=== PATIENT | female | born 1945 | race Caucasian/White ===

== ENCOUNTER 2019-08-07 21:56 | Emergency (ER) | payer MEDICARE, OTHER, SELFPAY ==
[2019-08-07 22:01] VITALS: BP 170/81; PULSE 76; RESP 16; TEMP 36.3; O2SAT 96
--- NOTE | 2019-08-07 22:04 | W.ED.GENAD ---
Discharge Plan Disposition Patient Disposition: HOME Condition: Stable Discharge Details Chief Complaint: EarProblem Clinical Impression: Ear foreign body Primary Care Provider: No,Local ED Provider: Scooby Zamora Home Meds and New Rx's Prescriptions: Continued simvastatin 5 MG tablet PO DAILY RF: 0 losartan 25 mg Tablet RF: 0 Discharge Instructions Instructions: Ear Foreign Body (ED) Additional Instructions: Foreign body removed without difficulty. Please watch for new or worsening symptoms and return to the ER for any concerns Medical Decision Making Presents with left ear canal foreign body. No additional questions or concerns. Able to remove foreign body with alligator forceps without difficulty. Patient tolerated well. Upon reevaluation canal is unremarkable. TM is normal. Medical Records Medical records reviewed: Yes I reviewed the patient's medical records. HPI General Mode of arrival: ambulatory. Date/Time Provider Initiated Documentation: 08/07/19 21:57. Limitations to Documentation: no limitations. Information obtained by: patient. HPI Narrative: Patient reports that approximately 1 hour ago she was removing her hearing aid from her left ear and realized that the plastic a dome piece is now off of her hearing aid and in her ear canal. Denies pain or any other symptoms. Related Data Home Medications Medication Instructions Recorded Confirmed simvastatin mg PO DAILY 12/08/16 losartan 08/07/19 Allergies Allergy/AdvReac Type Severity Reaction Status Date / Time ragweed pollen AdvReac Unverified 12/08/16 18:27 General Stated Complaint: EarProblem ASHLY: 4 Review of Systems Constitutional Constitutional: Denies headache(s) ENT Ears, Nose, Mouth, and Throat: Denies headache(s), Reports hearing loss (At baseline) and Denies sore throat Neurologic Neurologic: Denies headache(s) [facility] Social History Smoking/Tobacco Use Status: Never Drug use: Never Substance use type: does not use Do you feel safe at home: Yes Do you feel safe in your relationship?: Yes Exam Const General: cooperative, healthy appearing, comfortable and no acute distress Orientation: alert and awake [facility] Head: normal to inspection, normocephalic and atraumatic Ears: TM normal on the right and EAC abnormal foreign body on the left (Clear plastic hearing aid piece) Mouth: moist mucous membranes Eyes Conjunctivae: conjunctivae normal Neck Neck: normal visual inspection, trachea midline and supple Resp Effort & Inspection: normal respiratory effort and able to speak in complete sentences Skin General skin exam: no rashes or lesions noted Neuro General: patient alert, patient awake, moves all extremities and no focal motor deficits Sensory Exam: no sensory deficits noted Psych Appearance: grossly normal Mental Status: mental status grossly normal Course Vital Signs Vital signs: Vital Signs Temperature 36.3 C L 08/07/19 22:01 Pulse 76 08/07/19 22:01 Respiratory Rate 16 08/07/19 22:01 Blood Pressure 170/81 H 08/07/19 22:01 Pulse Oximetry 96 08/07/19 22:01 Temperature 36.3 C L 08/07/19 22:01 Temperature Source Skin 08/07/19 22:01 Pulse 76 08/07/19 22:01 Respiratory Rate 16 08/07/19 22:01 Blood Pressure 170/81 H 08/07/19 22:01 Blood Pressure Position Sitting 08/07/19 22:01 Pulse Oximetry 96 08/07/19 22:01 Oxygen Delivery Method Room Air 08/07/19 22:01 Oxygen Flow Rate 0 08/07/19 22:01
== END 2019-08-07 22:38 | disposition home or self-care (01) ==
LOC: ER 22:41
PROVIDERS: Emergency Provider Physician Assistant
DX: T16.2XXA Foreign body in left ear, initial encounter (principal)
CPT/HCPCS: 69200

== ENCOUNTER 2019-12-28 08:12 | Emergency (ER) | payer MEDICARE, OTHER, SELFPAY ==
[2019-12-28 08:15] VITALS: BP 148/78; PULSE 70; RESP 16; TEMP 36.3; O2SAT 100
--- NOTE | 2019-12-28 08:34 | W.ED.GENAD ---
Discharge Plan Disposition Patient Disposition: HOME Condition: Good Discharge Details Clinical Impression: Acute foreign body of left ear Primary Care Provider: Kenzie,Local ED Provider: Joaquin Catherine Home Meds and New Rx's Prescriptions: Continued simvastatin 5 MG tablet PO DAILY RF: 0 losartan 25 mg Tablet RF: 0 Discharge Instructions Additional Instructions: Please take Tylenol and Motrin as needed for any pain in your left ear. Please follow-up with your doctor to get a new attachment for your hearing aid. If you notice any worsening of your symptoms, or any new symptoms such as vomiting, diarrhea, fever, chills, shortness of breath, chest pain, numbness, weakness, or fainting , please return immediately to the emergency department for reevaluation. Please follow up with your primary care provider as soon as possible for reassessment and reevaluation. As always, it was a pleasure participating in your medical care today. Medical Decision Making 74-year-old female who wears hearing aids presents for foreign body in left ear. The rubber attachment from the hearing aid got stuck in her ear last night. She was unable to remove it. Aside from mild irritation she has no other complaints. No pertinent family surgical or other medical past history. Foreign body removed without complication or difficulty. Patient tolerated procedure well. Suture hemostats infection device were utilized for this. Patient will follow up with ear doctor. I have extensively reviewed the treatment plan and discharge instructions with the patient. I have addressed all patient concerns at this time. The patient was made aware of what symptoms to monitor for that would warrant a return to the emergency department. Discussed the plan with the patient, they demonstrate verbal understanding and agreement with our assessment and plan at this time. HPI General Date/Time Provider Initiated Documentation: 12/28/19 08:34. HPI Narrative: 74-year-old female who wears hearing aids presents for foreign body in left ear. The rubber attachment from the hearing aid got stuck in her ear last night. She was unable to remove it. Aside from mild irritation she has no other complaints. No pertinent family surgical or other medical past history. Related Data Home Medications Medication Instructions Recorded Confirmed simvastatin mg PO DAILY 12/08/16 losartan 08/07/19 Allergies Allergy/AdvReac Type Severity Reaction Status Date / Time ragweed pollen AdvReac Unverified 12/28/19 08:20 General Stated Complaint: EarProblem ASHLY: 4 Review of Systems All systems reviewed & are unremarkable except as noted in HPI and below PFSH Social History Smoking/Tobacco Use Status: Never Smoking risk assessment performed?: Yes Drug use: Never Substance use type: does not use Do you feel safe at home: Yes Do you feel safe in your relationship?: Yes Exam Narrative Exam Narrative: 1.Const: Well-nourished, Well-developed, appearing stated age 2.Eyes: PERRL, no conjunctival injection, and symmetrical lids. 3.ENT: Atraumatic external nose and ears. Moist MM. Neck: Symmetric, trachea midline, No thyromegaly. Left ear demonstrates a small rubber foreign body in the left ear canal, no bleeding or discharge. This was removed with pituitary hemostats and suction device. Patient tolerated it well, repeat exam shows no signs of bleeding discharge or tympanic membrane injury. 4.CVS: +S1/S2, No murmurs or gallops. Peripheral pulses 2+ and equal in all extremities. Brisk capillary refill in all extremities. 5.RESP: Unlabored respiratory effort. Clear to auscultation bilaterally. No wheezes rales or rhonchi 6.GI: Soft, Nontender/Nondistended, No hepatosplenomegaly. No guarding or rebound. 7.MSK: Normocephalic/Atraumatic, Extremities w/o deformity or ttp No cyanosis or clubbing, Normal movement of all extremities 8.Skin: Warm, Dry. No rashes or lesions. 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 Sensation grossly intact, no focal neurologic deficits. 10.Psych: (AAO) x3. Appropriate mood and affect Course Vital Signs Vital signs: Vital Signs Temperature 36.3 C L 12/28/19 08:15 Pulse 70 12/28/19 08:15 Respiratory Rate 16 12/28/19 08:15 Blood Pressure 148/78 H 12/28/19 08:15 Pulse Oximetry 100 12/28/19 08:15 Temperature 36.3 C L 12/28/19 08:15 Temperature Source Temporal Artery Scan 12/28/19 08:15 Pulse 70 12/28/19 08:15 Respiratory Rate 16 12/28/19 08:15 Respiratory Effort Non-Labored 12/28/19 08:19 Blood Pressure 148/78 H 12/28/19 08:15 Blood Pressure Position Sitting 12/28/19 08:15 Pulse Oximetry 100 12/28/19 08:15 Oxygen Delivery Method Room Air 12/28/19 08:15 Oxygen Flow Rate 0 12/28/19 08:15 Pain Level 1 12/28/19 08:21 Procedures FB Removal Ear Location: ear canal (L) Foreign Body Suspected: other (rubber plunger) TM intact pre-procedure: yes Foreign Body Removed: yes Foreign Body Removal Technique: instrumentation (Pituitary hemostat) Tympanic Membrane Intact: Yes Patient Tolerated Procedure: well Complications: none
== END 2019-12-28 08:40 | disposition home or self-care (01) ==
PROVIDERS: Emergency Provider Student in an Organized Health Care Education/Training Program
DX: T16.2XXA Foreign body in left ear, initial encounter (principal)
CPT/HCPCS: 69200